=== PATIENT | male | born 1945 | race Caucasian/White ===

== ENCOUNTER 2022-07-18 10:12 | Inpatient (IN) ==
[2022-07-18] MEDS ORDERED: Lactated Ringers 1000 ml BAG 1,000 ML IV ONE ×3 (10:27→12:15)
[2022-07-18] MEDS ORDERED: Ondansetron 4 mg VIAL 2 MG/ML 2 ml VIAL IV ONE (11:05)
[2022-07-18 11:20] LABS: ABS Basophils 0.1 10^3/ul (0-0.2); ABS Lymphocytes 2.4 10^3/ul (1.0-4.8); ABS Monocytes 0.7 10^3/ul (0-0.8); ABS Neutrophils 11.7 10^3/ul (1.5-7.7); Eosinophil % 0.1 %; Hematocrit 41 % (42-52); Hemoglobin 13.2 g/dL (14.0-18.0); Mean Corpuscular HGB Conc 32 g/dL (31-36); Mean Corpuscular Hemoglobin 29 pg (27-31); Mean Corpuscular Volume 90 fL (80-94); Mean Platelet Volume 7.6 fL (7.4-10.4); Nucleated Red Blood Cells % 0.1; Platelet Count 338 10^3/uL (150-450); Red Blood Count 4.61 10^6 /uL (4.18-5.48); Red Cell Distribution Width 15 % (10-15); White Blood Count 14.9 10^3/uL (3.5-10.8)
[2022-07-18 11:43] LABS: Activated Partial Thrombo Time 28.3 seconds (26.0-38.0); INR 1.1 (0.89-1.11)
[2022-07-18 12:05] LABS: Albumin 3.9 g/dL (3.2-5.2); Calcium 8.9 mg/dL (8.6-10.3); Globulin 3.9 g/dL (2-4); Total Bilirubin 0.3 mg/dL (0.2-1.0); Total Protein 7.8 g/dL (6.4-8.9); eGFR CKD-EPI 6.7 (>60)
[2022-07-18 12:24] LABS: Potassium 6.6 mmol/L (3.5-5.0)
[2022-07-18] MEDS ORDERED: CALCIUM GLUCONATE 1GM/50ML NS 1 GM/50 ML BAG IV ONE (12:25)
[2022-07-18] MEDS ORDERED: Sodium Bicarbonate 8.4% SYR 50 ml SYRINGE IV ONE (12:25)
[2022-07-18] MEDS ORDERED: SODIUM ZIRCONIUM CYCLOSILICATE 10 GM PACKET PO ONE (12:25)
[2022-07-18] MEDS ORDERED: Dextrose 50% Syringe 50 ml 25 GM/50 ML SYRINGE IV PUSH ONE (12:25)
[2022-07-18 12:34] LABS: High Sensitivity Troponin 1 Hr 13 pg/mL (<20)
[2022-07-18] MEDS ORDERED: Dextrose 50% Syringe 50 ml 25 GM/50 ML SYRINGE IV PUSH PRN (13:51)
[2022-07-18] MEDS ORDERED: Lidocaine 1% VIAL 10 MG/ML VIAL 30 ML ONE (13:57)
[2022-07-18] MEDS: Norepinephrine 16MCG/ML BAGD5W 4,000 MCG/250 ML BAG IV SCH (14:51)
[2022-07-18] MEDS: Heparin 1,000 UNIT/ML 10 ml (10,000 UNITS) CATHLAB/DIALYSIS DIALYSIS PRN ×3 (15:46→18:41)
[2022-07-18 17:29] LABS: Urine Appearance Turbid; Urine Bilirubin Negative (Negative); Urine Blood 3+ (Negative); Urine Color Yellow; Urine Glucose Negative (Negative); Urine Ketones Negative (Negative); Urine Nitrite Negative (Negative); Urine Protein 2+(100 mg/dL) (Negative); Urine Specific Gravity 1.013 (1.002-1.030); Urine Urobilinogen Negative (Negative)
[2022-07-18 17:33] LABS: Urine Creatinine 137.33 mg/dL; Urine Creatinine Concentration 137.33 mg/dL
[2022-07-18 18:12] LABS: Hepatitis B Surface Antigen Nonreactive (Nonreactive)
[2022-07-18 18:13] LABS: UR Microalbumin (mg/L) 523.6 mg/L; Urine Microalbumin/Creatinine 381.2 (<31)
[2022-07-18 18:17] LABS: Hepatitis B Core IgM Nonreactive (Nonreactive)
[2022-07-18 18:20] LABS: Urine Bacteria 3+ (Absent); Urine Red Blood Cell 3+(>10/hpf) (Absent); Urine Squamous Epithelial Cell Present (Absent); Urine White Blood Cell 3+(>20/hpf) (Absent)
[2022-07-18 18:30] LABS: Hepatitis B Surface Ab Immune (Immune); Hepatitis C Antibody Negative (Negative)
[2022-07-18 23:07] LABS: Blood Urea Nitrogen 61 mg/dL (6-24); CO2 Carbon Dioxide 20 mmol/L (22-32); Calcium 8.3 mg/dL (8.6-10.3); Chloride 95 mmol/L (101-111); Glucose 120 mg/dL (70-100); Sodium 131 mmol/L (135-145); eGFR CKD-EPI 12.6 (>60)
[2022-07-18 23:12] LABS: Anion Gap 16 mmol/L (2-11)
[2022-07-18 23:15] LABS: HIV 4th Generation Nonreactive (Nonreactive)
[2022-07-19] MEDS: cefTRIAXone 1 gm/50 mL D5W 1 GM/50 ML BAG IV SCH ×2 (00:45→22:39)
[2022-07-19] MEDS: Norepinephrine 16MCG/ML BAGD5W 4,000 MCG/250 ML BAG IV SCH (03:45)
[2022-07-19] MEDS ORDERED: Norepinephrine 16MCG/ML BAGD5W 4,000 MCG/250 ML BAG IV SCH (03:48)
[2022-07-19 05:31] LABS: ABS Basophils 0.1 10^3/ul (0-0.2); ABS Eosinophils 0.1 10^3/ul (0-0.6); ABS Lymphocytes 2.3 10^3/ul (1.0-4.8); ABS Monocytes 1.1 10^3/ul (0-0.8); ABS Neutrophils 10.3 10^3/ul (1.5-7.7); Eosinophil % 0.6 %; Hematocrit 37 % (42-52); Hemoglobin 12.1 g/dL (14.0-18.0); Lymphocyte % 16.4 %; Mean Corpuscular HGB Conc 33 g/dL (31-36); Mean Corpuscular Hemoglobin 28 pg (27-31); Mean Corpuscular Volume 87 fL (80-94); Mean Platelet Volume 7.9 fL (7.4-10.4); Platelet Count 316 10^3/uL (150-450); Red Blood Count 4.26 10^6 /uL (4.18-5.48); Red Cell Distribution Width 15 % (10-15); White Blood Count 13.8 10^3/uL (3.5-10.8)
[2022-07-19 05:36] LABS: INR 1.1 (0.89-1.11)
[2022-07-19] MEDS ORDERED: D5W 250 ml BAG 250 ML IV SCH (06:00)
[2022-07-19 07:03] LABS: ALT 22 U/L (7-52); Albumin 3.4 g/dL (3.2-5.2); Alkaline Phosphatase 71 U/L (35-149); Blood Urea Nitrogen 64 mg/dL (6-24); CO2 Carbon Dioxide 19 mmol/L (22-32); Calcium 8.2 mg/dL (8.6-10.3); Chloride 98 mmol/L (101-111); Globulin 3.5 g/dL (2-4); Glucose 52 mg/dL (70-100); Magnesium 1.3 mg/dL (1.9-2.7); Sodium 132 mmol/L (135-145); Total Protein 6.9 g/dL (6.4-8.9); eGFR CKD-EPI 14.4 (>60)
[2022-07-19 07:04] LABS: Anion Gap 15 mmol/L (2-11)
[2022-07-19] MEDS ORDERED: Magnesium Sulf 4 GM/100 ML IV 4,000 MG/100 ML BAG IVPB ONE (08:00)
[2022-07-19 08:14] LABS: Potassium Redraw 4.8 mmol/L (3.5-5.0)
[2022-07-19] MEDS ORDERED: Influenza vaccine *QUAD* *2022-23* 0.5 ML SYRINGE IM ONE (09:00)
[2022-07-19] MEDS ORDERED: Lactated Ringers 1000 ml BAG 1,000 ML IV SCH ×2 (09:00→16:00)
[2022-07-19] MEDS ORDERED: D5NS 0.9% 1000 ml BAG 1,000 ML IV SCH (11:00)
[2022-07-19] MEDS: Heparin 5000 UNITS/ML 1 mL VIAL SUBCUT SCH ×2 (14:21→22:40)
[2022-07-20 05:54] LABS: ABS Basophils 0.1 10^3/ul (0-0.2); ABS Eosinophils 0.2 10^3/ul (0-0.6); ABS Lymphocytes 2.6 10^3/ul (1.0-4.8); ABS Monocytes 1.1 10^3/ul (0-0.8); ABS Neutrophils 7.2 10^3/ul (1.5-7.7); Eosinophil % 1.4 %; Hematocrit 36 % (42-52); Hemoglobin 11.8 g/dL (14.0-18.0); Lymphocyte % 23.3 %; Mean Corpuscular HGB Conc 33 g/dL (31-36); Mean Corpuscular Hemoglobin 28 pg (27-31); Mean Corpuscular Volume 87 fL (80-94); Mean Platelet Volume 7.6 fL (7.4-10.4); Platelet Count 268 10^3/uL (150-450); Red Blood Count 4.16 10^6 /uL (4.18-5.48); Red Cell Distribution Width 15 % (10-15); White Blood Count 11.1 10^3/uL (3.5-10.8)
[2022-07-20] MEDS: Heparin 5000 UNITS/ML 1 mL VIAL SUBCUT SCH ×3 (05:55→21:57)
[2022-07-20 06:17] LABS: Albumin 3.4 g/dL (3.2-5.2); Albumin/Globulin Ratio 0.9 (1-3); Calcium 8.3 mg/dL (8.6-10.3); Globulin 3.7 g/dL (2-4); Magnesium 2.2 mg/dL (1.9-2.7); Potassium 5.1 mmol/L (3.5-5.0); Total Bilirubin 0.3 mg/dL (0.2-1.0); Total Protein 7.1 g/dL (6.4-8.9); eGFR CKD-EPI 25.1 (>60)
[2022-07-20] MEDS ORDERED: NS 0.9% 1000 ml BAG 1,000 ML IV SCH (08:15)
[2022-07-20] MEDS ORDERED: Lactated Ringers 1000 ml BAG 1,000 ML IV SCH (09:00)
[2022-07-20 13:35] LABS: Complement C3 166 mg/dL (75 - 175)
[2022-07-20 13:47] LABS: Kappa Free Light Chain 12.4 mg/dL; Lambda Free Light Chain, S 7.61 mg/dL
[2022-07-20 16:47] LABS: Myeloperoxidase Antibody <0.2 U
[2022-07-20] MEDS: cefTRIAXone 1 gm/50 mL D5W 1 GM/50 ML BAG IV SCH (21:56)
[2022-07-21] MEDS: Heparin 5000 UNITS/ML 1 mL VIAL SUBCUT SCH ×3 (05:20→21:58)
[2022-07-21 05:44] LABS: Hematocrit 36 % (42-52); Hemoglobin 11.7 g/dL (14.0-18.0); Mean Corpuscular HGB Conc 33 g/dL (31-36); Mean Corpuscular Hemoglobin 29 pg (27-31); Mean Corpuscular Volume 89 fL (80-94); Mean Platelet Volume 7.5 fL (7.4-10.4); Platelet Count 300 10^3/uL (150-450); Red Blood Count 4.02 10^6 /uL (4.18-5.48); Red Cell Distribution Width 15 % (10-15); White Blood Count 10.9 10^3/uL (3.5-10.8)
[2022-07-21 06:19] LABS: Calcium 8.1 mg/dL (8.6-10.3); Magnesium 1.8 mg/dL (1.9-2.7); eGFR CKD-EPI 37.3 (>60)
[2022-07-21 06:21] LABS: Potassium 5.3 mmol/L (3.5-5.0)
[2022-07-21] MEDS ORDERED: Magnesium Sulfate IV 3 GM in NS 0.9% 100 ml BAG 100 ML IVPB ONE (09:00)
[2022-07-21] MEDS ORDERED: Patiromer POWDER 8.4 GM PAK PO SCH (09:00)
[2022-07-21 12:05] LABS: Albumin 2.8 g/dL (3.4-4.7); Albumin/Globulin Ratio 0.66; Gamma Globulin 1.6 g/dL (0.6-1.6); Total Protein(PEP) 7.1 g/dL (6.3 - 7.9)
[2022-07-21 12:06] LABS: Cryoglobulin Negative %ppt (Negative)
[2022-07-21 14:06] LABS: C-ANCA Negative (Negative); P-ANCA Negative (Negative)
[2022-07-21] MEDS: cefTRIAXone 1 gm/50 mL D5W 1 GM/50 ML BAG IV SCH (21:58)
[2022-07-22] MEDS: Heparin 5000 UNITS/ML 1 mL VIAL SUBCUT SCH ×2 (05:34→14:36)
[2022-07-22 05:47] LABS: ABS Basophils 0.1 10^3/ul (0-0.2); ABS Eosinophils 0.5 10^3/ul (0-0.6); ABS Lymphocytes 3.5 10^3/ul (1.0-4.8); ABS Monocytes 0.8 10^3/ul (0-0.8); ABS Neutrophils 7.4 10^3/ul (1.5-7.7); Eosinophil % 4.1 %; Hematocrit 38 % (42-52); Hemoglobin 11.9 g/dL (14.0-18.0); Lymphocyte % 28.1 %; Mean Corpuscular HGB Conc 31 g/dL (31-36); Mean Corpuscular Hemoglobin 28 pg (27-31); Mean Corpuscular Volume 90 fL (80-94); Mean Platelet Volume 7.4 fL (7.4-10.4); Platelet Count 304 10^3/uL (150-450); Red Blood Count 4.22 10^6 /uL (4.18-5.48); Red Cell Distribution Width 15 % (10-15); White Blood Count 12.3 10^3/uL (3.5-10.8)
[2022-07-22 06:10] LABS: Calcium 8.3 mg/dL (8.6-10.3)
[2022-07-22 06:14] LABS: Potassium 6.4 mmol/L (3.5-5.0)
[2022-07-22] MEDS: Heparin 1,000 UNIT/ML 10 ml (10,000 UNITS) CATHLAB/DIALYSIS DIALYSIS ONE ×4 (09:58→13:03)
[2022-07-22 11:11] LABS: Calcium 8.2 mg/dL (8.6-10.3); eGFR CKD-EPI 58.2 (>60)
[2022-07-22 11:21] LABS: Potassium 5.1 mmol/L (3.5-5.0)
[2022-07-22] MEDS ORDERED: Patiromer POWDER 8.4 GM PAK PO SCH (12:00)
[2022-07-22] MEDS: Heparin 1,000 UNIT/ML 10 ml (10,000 UNITS) CATHLAB/DIALYSIS DIALYSIS PRN (13:03)
[2022-07-22] MEDS: Enoxaparin 30 MG/0.3 ML SYR SUBCUT SCH (17:03)
[2022-07-22 18:07] LABS: Calcium 8.5 mg/dL (8.6-10.3); Potassium 4.5 mmol/L (3.5-5.0)
[2022-07-22] MEDS: cefTRIAXone 1 gm/50 mL D5W 1 GM/50 ML BAG IV SCH (20:58)
[2022-07-23 06:41] LABS: ABS Basophils 0.1 10^3/ul (0-0.2); ABS Eosinophils 0.5 10^3/ul (0-0.6); ABS Lymphocytes 3.3 10^3/ul (1.0-4.8); ABS Monocytes 0.8 10^3/ul (0-0.8); ABS Neutrophils 7.4 10^3/ul (1.5-7.7); Eosinophil % 3.9 %; Hematocrit 39 % (42-52); Hemoglobin 12.6 g/dL (14.0-18.0); Lymphocyte % 27.3 %; Mean Corpuscular HGB Conc 32 g/dL (31-36); Mean Corpuscular Hemoglobin 29 pg (27-31); Mean Corpuscular Volume 89 fL (80-94); Mean Platelet Volume 7.3 fL (7.4-10.4); Platelet Count 321 10^3/uL (150-450); Red Blood Count 4.39 10^6 /uL (4.18-5.48); Red Cell Distribution Width 15 % (10-15); White Blood Count 12.2 10^3/uL (3.5-10.8)
[2022-07-23 06:58] LABS: Calcium 8.7 mg/dL (8.6-10.3); Magnesium 1.7 mg/dL (1.9-2.7); eGFR CKD-EPI 37.3 (>60)
[2022-07-23 07:11] LABS: Potassium 5.4 mmol/L (3.5-5.0)
[2022-07-23] MEDS ORDERED: Sodium Polystyrene ORAL.SUSP 15 GM/60 ML BTL PO SCH (09:00)
[2022-07-23] MEDS: Enoxaparin 30 MG/0.3 ML SYR SUBCUT SCH (13:25)
[2022-07-23 15:12] LABS: Calcium 8.9 mg/dL (8.6-10.3); eGFR CKD-EPI 30.5 (>60)
[2022-07-23 15:18] LABS: Potassium 5.5 mmol/L (3.5-5.0)
[2022-07-23] MEDS ORDERED: Sodium Polystyrene ORAL.SUSP 15 GM/60 ML BTL PO ONE (15:29)
[2022-07-23] MEDS: cefTRIAXone 1 gm/50 mL D5W 1 GM/50 ML BAG IV SCH (20:40)
[2022-07-24 01:14] LABS: Calcium 8.7 mg/dL (8.6-10.3); Potassium 4.8 mmol/L (3.5-5.0); eGFR CKD-EPI 30.2 (>60)
[2022-07-24 06:47] LABS: Hematocrit 40 % (42-52); Hemoglobin 13.1 g/dL (14.0-18.0); Mean Corpuscular HGB Conc 33 g/dL (31-36); Mean Corpuscular Hemoglobin 29 pg (27-31); Mean Corpuscular Volume 89 fL (80-94); Mean Platelet Volume 6.9 fL (7.4-10.4); Platelet Count 290 10^3/uL (150-450); Red Blood Count 4.54 10^6 /uL (4.18-5.48); Red Cell Distribution Width 15 % (10-15); White Blood Count 13.1 10^3/uL (3.5-10.8)
[2022-07-24 07:34] LABS: Calcium 8.5 mg/dL (8.6-10.3); Magnesium 1.7 mg/dL (1.9-2.7); eGFR CKD-EPI 32.2 (>60)
[2022-07-24 07:38] LABS: Potassium 5.5 mmol/L (3.5-5.0)
[2022-07-24] MEDS ORDERED: Sodium Polystyrene ORAL.SUSP 15 GM/60 ML BTL PO ONE ×2 (08:00→18:56)
[2022-07-24 08:20] LABS: ABS Eosinophils 0.4 10^3/ul (0-0.6); ABS Lymphocytes 3.3 10^3/ul (1.0-4.8); ABS Monocytes 1.1 10^3/ul (0-0.8); ABS Neutrophils 8.2 10^3/ul (1.5-7.7); Eosinophil % 3.2 %; Lymphocyte % 25.1 %
[2022-07-24] MEDS ORDERED: Cosyntropin 0.25 MG VIAL IV ONE (11:47)
[2022-07-24] MEDS: Enoxaparin 30 MG/0.3 ML SYR SUBCUT SCH (16:06)
[2022-07-24] MEDS: Insulin GLARGINE 100 un/ml 10 ml VIAL SUBCUT SCH (18:08)
[2022-07-24] MEDS: cefTRIAXone 1 gm/50 mL D5W 1 GM/50 ML BAG IV SCH (22:28)
[2022-07-25 06:42] LABS: ABS Basophils 0.2 10^3/ul (0-0.2); ABS Eosinophils 0.3 10^3/ul (0-0.6); ABS Lymphocytes 4.3 10^3/ul (1.0-4.8); ABS Neutrophils 9.7 10^3/ul (1.5-7.7); Eosinophil % 1.7 %; Hematocrit 40 % (42-52); Hemoglobin 12.7 g/dL (14.0-18.0); Lymphocyte % 27.8 %; Mean Corpuscular HGB Conc 32 g/dL (31-36); Mean Corpuscular Hemoglobin 29 pg (27-31); Mean Corpuscular Volume 91 fL (80-94); Mean Platelet Volume 7.7 fL (7.4-10.4); Platelet Count 283 10^3/uL (150-450); Red Blood Count 4.35 10^6 /uL (4.18-5.48); Red Cell Distribution Width 15 % (10-15); White Blood Count 15.3 10^3/uL (3.5-10.8)
[2022-07-25 06:59] LABS: Calcium 8.2 mg/dL (8.6-10.3); Magnesium 1.7 mg/dL (1.9-2.7); eGFR CKD-EPI 30.2 (>60)
[2022-07-25 07:03] LABS: Potassium 5.1 mmol/L (3.5-5.0)
[2022-07-25] MEDS ORDERED: Magnesium Sulfate 2 gm BAG 2 GM/50 ML BAG IVPB ONE (07:41)
[2022-07-25] MEDS ORDERED: Sodium Polystyrene ORAL.SUSP 15 GM/60 ML BTL PO ONE (08:00)
[2022-07-25] MEDS: Insulin GLARGINE 100 un/ml 10 ml VIAL SUBCUT SCH (08:48)
[2022-07-25] MEDS: Enoxaparin 30 MG/0.3 ML SYR SUBCUT SCH (16:28)
[2022-07-25] MEDS: cefTRIAXone 1 gm/50 mL D5W 1 GM/50 ML BAG IV SCH (21:16)
[2022-07-26 06:31] LABS: Hematocrit 40 % (42-52); Hemoglobin 12.6 g/dL (14.0-18.0); Mean Corpuscular HGB Conc 32 g/dL (31-36); Mean Corpuscular Hemoglobin 28 pg (27-31); Mean Corpuscular Volume 90 fL (80-94); Mean Platelet Volume 7.4 fL (7.4-10.4); Platelet Count 273 10^3/uL (150-450); Red Blood Count 4.45 10^6 /uL (4.18-5.48); Red Cell Distribution Width 15 % (10-15); White Blood Count 14.8 10^3/uL (3.5-10.8)
[2022-07-26 07:12] LABS: Calcium 8.6 mg/dL (8.6-10.3); Magnesium 1.9 mg/dL (1.9-2.7); eGFR CKD-EPI 35.9 (>60)
[2022-07-26 07:29] LABS: Potassium 5.3 mmol/L (3.5-5.0)
[2022-07-26] MEDS: Insulin GLARGINE 100 un/ml 10 ml VIAL SUBCUT SCH (08:31)
[2022-07-26] MEDS: Patiromer POWDER 8.4 GM PAK PO SCH (12:20)
[2022-07-26] MEDS: Enoxaparin 30 MG/0.3 ML SYR SUBCUT SCH (16:32)
[2022-07-26] MEDS ORDERED: Insulin GLARGINE 100 un/ml 10 ml VIAL SUBCUT ONE (21:00)
[2022-07-27 08:18] LABS: Calcium 8.8 mg/dL (8.6-10.3); Magnesium 1.5 mg/dL (1.9-2.7); eGFR CKD-EPI 34.8 (>60)
[2022-07-27 08:19] LABS: Potassium 5.5 mmol/L (3.5-5.0)
[2022-07-27] MEDS: Patiromer POWDER 8.4 GM PAK PO SCH (12:02)
[2022-07-27] MEDS: Enoxaparin 30 MG/0.3 ML SYR SUBCUT SCH (14:13)
[2022-07-27] MEDS ORDERED: Insulin GLARGINE 100 un/ml 10 ml VIAL SUBCUT SCH (21:00)
[2022-07-28 06:24] LABS: Calcium 8.8 mg/dL (8.6-10.3); Magnesium 1.3 mg/dL (1.9-2.7)
[2022-07-28 06:40] LABS: Potassium 5.9 mmol/L (3.5-5.0)
[2022-07-28] MEDS ORDERED: Magnesium Sulfate 2 gm BAG 2 GM/50 ML BAG IVPB ONE (07:17)
[2022-07-28] MEDS: Patiromer POWDER 8.4 GM PAK PO SCH (14:40)
[2022-07-28 15:46] LABS: Blood Urea Nitrogen 40 mg/dL (6-24); CO2 Carbon Dioxide 17 mmol/L (22-32); Calcium 8.1 mg/dL (8.6-10.3); Chloride 110 mmol/L (101-111); Glucose 489 mg/dL (70-100); Sodium 134 mmol/L (135-145); eGFR CKD-EPI 40.4 (>60)
[2022-07-28 15:49] LABS: Anion Gap 7 mmol/L (2-11)
[2022-07-28 17:40] LABS: Glucose Confirmatory 449 mg/dL (70-100)
[2022-07-28] MEDS ORDERED: Insulin GLARGINE 100 un/ml 10 ml VIAL SUBCUT SCH (21:00)
[2022-07-29 06:29] LABS: Calcium 8.6 mg/dL (8.6-10.3); Magnesium 1.5 mg/dL (1.9-2.7); eGFR CKD-EPI 35.7 (>60)
[2022-07-29 06:30] LABS: Potassium 5.2 mmol/L (3.5-5.0)
[2022-07-29 06:59] VITALS: BP 121/82
[2022-07-29] MEDS ORDERED: Sodium Bicarb 650 mg (ANTACID) TAB PO SCH (09:00)
[2022-07-29] MEDS: Patiromer POWDER 8.4 GM PAK PO SCH (11:39)
== END 2022-07-29 14:25 | DRG 720 ==
LOC: EDBD → ED 10:12 → EDHOLD 13:41 → SUATTDRO 13:41 → ICU 13:58 → MED 07-19 19:45
PROVIDERS: ADMIT Internal Medicine; ATTEND Internal Medicine